=== PATIENT | female | born 1960 | race Two or more races ===

== ENCOUNTER → 2023-12-26 06:35 | Day surgery (SDC) | payer BC, SELFPAY | LOC: GI 06:35 | PROVIDERS: ATTENDING PHYSICIAN Internal Medicine Gastroenterology; FAMILY PHYSICIAN Family Medicine | DX: Z12.11 Encounter for screening for malignant neoplasm of colon (principal); D12.5 Benign neoplasm of sigmoid colon; K57.30 Diverticulosis of large intestine without perforation or abscess without bleeding; K62.1 Rectal polyp; Z86.010 Personal history of colon polyps | CPT/HCPCS: 45385; 45380; 88305 ==

== ENCOUNTER → 2024-01-21 07:24 | Outpatient (REF) | payer BC, SELFPAY | LOC: PAVMRI 07:24 | PROVIDERS: ATTENDING PHYSICIAN Family Medicine | DX: R22.2 Localized swelling, mass and lump, trunk (principal) | CPT/HCPCS: 71552; A9575 ==